=== PATIENT | male | born 1945 | race Caucasian/White ===

== ENCOUNTER 2017-08-08 15:41 | Inpatient (IN) | payer MEDICARE ==
[~2017-08-08 15:41] MED LIST: ISOVUE-370 76%-LOCM 1 ML ONE
[2017-08-08] MEDS ORDERED: Adacel (T-DAP) 0.5 ML VIAL ONE ×2 (15:53→16:07)
[2017-08-08] MEDS ORDERED: CEFAZOLIN 1 GM VIAL ONE (15:53)
[2017-08-08] MEDS ORDERED: Lidocaine 1% w/Epinephrine 1:100K 20 ML VIAL ONE ×2 (15:56→16:23)
[2017-08-08] MEDS ORDERED: Ondansetron ODT 4 MG TAB ONE (15:56)
[2017-08-08 15:59] LABS: #Basophils 0.1 thou/uL (0.0-0.2); #Eosinphils 0.3 thou/uL (0.0-0.7); #Lymphocytes 3.4 thou/uL (1.20-3.40); #Monocytes 1.1 thou/uL (0.11-0.59); #Neutrophils 5.5 thou/uL (1.40-6.50); %Basophils 0.6 % (0.0-1.0); %Lymphocytes 32.6 % (21.0-51.0); %Monocytes 10.2 % (0.0-10.0); %Neutrophils 53.6 % (42.0-75.0); Hemoglobin 12.4 g/dL (14.0-18.0); Mean Corpuscular HGB CONC 34.8 g/dL (32.0-36.0); Mean Platelet Volume 6.9 fL (7.4-10.4); Platelet Count 258 thou/uL (130-400); RBC Distribution Width 11.5 % (11.5-14.5); Red Blood Cell (RBC) Count 3.87 mill/uL (4.70-6.10); White Blood Cell (WBC) Count 10.3 thou/uL (4.8-10.8)
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
[2017-08-08 16:07] LABS: PTT 26.6 SEC (22.9-36.1); Prothrombin Time 13.3 SEC (12.0-14.7)
[2017-08-08 16:16] LABS: ALT (SGPT) 18 U/L (8-55); AST (SGOT) 26 U/L (5-34); Albumin 4.3 g/dL (3.4-4.8); Alkaline Phosphatase 57 U/L (40-150); Anion Gap 12 mmol/L (10-20); BUN (Urea Nitrogen) 16 mg/dL (8.4-25.7); Bilirubin, Total 0.6 mg/dL (0.2-1.2); Calc. Creatinine Clearance 0 mL/min (70-130); Calcium 9.1 mg/dL (7.8-10.44); Carbon Dioxide 23 mmol/L (23-31); Chloride 103 mmol/L (98-107); Estimated GFR-MDRD 83; Globulin 2.4 g/dL (2.4-3.5); Glucose 98 mg/dL (83-110); Potassium 3.5 mmol/L (3.5-5.1); Protein, Total 6.7 g/dL (5.8-8.1); Sodium 134 mmol/L (136-145)
[2017-08-08 16:17] LABS: CKMB 6.1 ng/mL (0-6.6); Troponin I Less than 0.010 ng/mL (< 0.028)
[2017-08-08] MEDS ORDERED: Oxymetazoline HCl 0.05% ( 15 ML ) ONE (16:19)
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
[2017-08-08] MEDS ORDERED: CEFAZOLIN/Water 2 GM/20 ML SYRINGE SLOW IVP SCH (16:30)
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
[2017-08-08] MEDS ORDERED: Atropine Sulfate 1 mg/10 ml Syringe ONE ×2 (16:35→18:15)
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
[2017-08-08] MEDS ORDERED: Ondansetron ODT 4 MG TAB PO PRN (17:46)
[2017-08-08] MEDS ORDERED: Dextrose 50% Abboject 50 ML SYRINGE SLOW IVP PRN (17:46)
[2017-08-08] MEDS ORDERED: Ondansetron HCl/PF 4 MG/2 ML Vial IVP PRN (17:46)
[2017-08-08] MEDS ORDERED: Dextrose 5% in Water 1,000 ML IV PRN (17:46)
[2017-08-08] MEDS ORDERED: hydrALAZINE 20 MG/ML VIAL SLOW IVP PRN (17:46)
[2017-08-08 18:07] LABS: Hemoglobin 9.9 g/dL (14.0-18.0)
[2017-08-08] MEDS: Sodium Chloride 0.9% 1,000 ML IV SCH (18:10)
[2017-08-08 18:24] VITALS: BMI 23.8
[2017-08-08] MEDS: Acetaminophen 1,000 MG in Premix Bag 1 BAG IVPB SCH ×2 (19:05→23:22)
[2017-08-08] MEDS ORDERED: CEFAZOLIN 1 GM VIAL SLOW IVP SCH (22:00)
[2017-08-08 23:49] LABS: Hemoglobin 10.6 g/dL (14.0-18.0)
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
[2017-08-09] MEDS: CEFAZOLIN 1 GM in Sodium Chloride 0.9% 100 ML IVPB SCH ×2 (01:20→08:29)
[2017-08-09] MEDS: Sodium Chloride 0.9% 1,000 ML IV SCH ×2 (03:39→12:08)
[2017-08-09 05:01] LABS: Anion Gap 11 mmol/L (10-20); BUN (Urea Nitrogen) 23 mg/dL (8.4-25.7); Calc. Creatinine Clearance 109 mL/min (70-130); Calcium 8.1 mg/dL (7.8-10.44); Carbon Dioxide 23 mmol/L (23-31); Chloride 106 mmol/L (98-107); Estimated GFR-MDRD Greater than 90; Glucose 115 mg/dL (83-110); Potassium 3.9 mmol/L (3.5-5.1); Sodium 136 mmol/L (136-145)
[2017-08-09 05:11] LABS: Band 11 % (5-11); Hemoglobin 10.2 g/dL (14.0-18.0); Lymphocytes 19 % (21-51); MDiff Complete? YES; Mean Corpuscular HGB CONC 34.3 g/dL (32.0-36.0); Mean Corpuscular Hemoglobin 31.5 pg (27.0-31.0); Mean Corpuscular Volume 91.9 fL (78.0-98.0); Mean Platelet Volume 7.2 fL (7.4-10.4); Monocytes 11 % (0-10); Neutrophil 59 % (42-75); PLT Morphology Comment Appears Adequate; Platelet Count 178 thou/uL (130-400); RBC Distribution Width 11.9 % (11.5-14.5); Red Blood Cell (RBC) Count 3.25 mill/uL (4.70-6.10); White Blood Cell (WBC) Count 9.5 thou/uL (4.8-10.8)
[2017-08-09] MEDS: Acetaminophen 1,000 MG in Premix Bag 1 BAG IVPB SCH ×2 (05:26→12:10)
[2017-08-09 06:18] LABS: Hemoglobin 9.7 g/dL (14.0-18.0)
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
[2017-08-09 12:18] LABS: Hemoglobin 10.5 g/dL (14.0-18.0)
[2017-08-09] MEDS ORDERED: traMADol HCl 50 MG TAB PO PRN ×2 (13:20)
[2017-08-09] MEDS ORDERED: Acetaminophen 500 MG TAB PO SCH (13:30)
[2017-08-09] MEDS: Acetaminophen 325 MG TAB PO SCH ×3 (14:53→20:49)
[2017-08-09] MEDS: Ibuprofen 800 MG TAB PO SCH ×2 (14:54→20:49)
[2017-08-09 18:11] LABS: Hemoglobin 9.7 g/dL (14.0-18.0)
[2017-08-09 23:33] LABS: Hemoglobin 9.1 g/dL (14.0-18.0)
[2017-08-10] MEDS: Acetaminophen 325 MG TAB PO SCH ×6 (02:37→21:30)
[2017-08-10] MEDS: Ibuprofen 800 MG TAB PO SCH ×3 (06:16→21:30)
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
[2017-08-10] MEDS: Aspirin 81 mg Enteric Coated Tablet PO SCH (09:54)
[2017-08-10] MEDS: Rosuvastatin 10 MG TAB PO SCH (09:54)
[2017-08-10] MEDS: Lisinopril 10 MG TAB PO SCH (09:54)
[2017-08-10 11:50] LABS: Hemoglobin 9.1 g/dL (14.0-18.0)
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
[2017-08-11] MEDS: Acetaminophen 325 MG TAB PO SCH ×4 (03:33→14:12)
[2017-08-11 05:33] LABS: #Eosinphils 0.3 thou/uL (0.0-0.7); #Monocytes 0.8 thou/uL (0.11-0.59); #Neutrophils 6.8 thou/uL (1.40-6.50); %Basophils 0.3 % (0.0-1.0); %Eosinophils 3.6 % (0.0-10.0); %Lymphocytes 11.2 % (21.0-51.0); %Monocytes 9.1 % (0.0-10.0); %Neutrophils 75.8 % (42.0-75.0); Hemoglobin 8.6 g/dL (14.0-18.0); Mean Corpuscular HGB CONC 34.5 g/dL (32.0-36.0); Mean Corpuscular Hemoglobin 31.9 pg (27.0-31.0); Mean Corpuscular Volume 92.7 fL (78.0-98.0); Mean Platelet Volume 7.4 fL (7.4-10.4); Platelet Count 147 thou/uL (130-400); Red Blood Cell (RBC) Count 2.68 mill/uL (4.70-6.10); White Blood Cell (WBC) Count 8.9 thou/uL (4.8-10.8)
[2017-08-11 05:46] LABS: Anion Gap 8 mmol/L (10-20); BUN (Urea Nitrogen) 14 mg/dL (8.4-25.7); Calc. Creatinine Clearance 103 mL/min (70-130); Calcium 8.5 mg/dL (7.8-10.44); Carbon Dioxide 25 mmol/L (23-31); Chloride 107 mmol/L (98-107); Estimated GFR-MDRD Greater than 90; Glucose 108 mg/dL (83-110); Magnesium 1.8 mg/dL (1.6-2.6); Phosphorus 2.9 mg/dL (2.3-4.7); Potassium 3.6 mmol/L (3.5-5.1); Sodium 136 mmol/L (136-145)
[2017-08-11] MEDS: Ibuprofen 800 MG TAB PO SCH ×2 (06:08→14:12)
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
[2017-08-11] MEDS ORDERED: NEXIUM 20 MG PO SCH (09:00)
[2017-08-11] MEDS: Lisinopril 10 MG TAB PO SCH (09:54)
[2017-08-11] MEDS: Rosuvastatin 10 MG TAB PO SCH (09:54)
[2017-08-11] MEDS: Aspirin 81 mg Enteric Coated Tablet PO SCH (09:54)
--- NOTE | 2017-08-11 15:34 | RAD ---
PORTABLE CHEST 1 VIEW: Date: 08/11/17 Time: 1428 hours HISTORY: Chest tube removal. FINDINGS/IMPRESSION: Comparison made with exam at 0741 hours from the same date. There has been interval removal of the right-sided chest tube. A tiny right apical pneumothorax is se en. Remainder of exam is otherwise stable. POS: [facility]
[2017-08-11 15:37] VITALS: BP 119/72; TEMP 97.7
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
== END 2017-08-11 18:50 | disposition home or self-care (01) | DRG 605 ==
LOC: ERS 15:41 → CCU 17:16 → SURG B 17:24
PROVIDERS: ADMIT Surgery; ATTEND Surgery
PROC: 0W9900Z Drainage of Right Pleural Cavity with Drainage Device, Open Approach (ICD-10-PCS; principal; 2017-08-09)
DX: S21.109A Unspecified open wound of unspecified front wall of thorax without penetration into thoracic cavity, initial encounter (principal); J93.9 Pneumothorax, unspecified; S01.401A Unspecified open wound of right cheek and temporomandibular area, initial encounter; S11.90XA Unspecified open wound of unspecified part of neck, initial encounter; X95.9XXA Assault by unspecified firearm discharge, initial encounter; Y93.9 Activity, unspecified; Y92.9 Unspecified place or not applicable; I10 Essential (primary) hypertension; E78.00 Pure hypercholesterolemia, unspecified
CPT/HCPCS: 36415; 36416; 36430; 70486; 70498; 71045; 71260; 74177; 74220; 80048; 80053; 82150; 82533; 82553; 83735; 84100; 84484; 85014; 85018; 85025; 85610; 85730; 86850; 86900; 86901; 90471; 90715; 94640; 96361; 96374; 99292; G0390; G8978-GP-CL; G8979-GP-CJ; G8987-GO-CI; G8988-GO-CI; G8989-GO-CI; J0131; J0461; J0690; J2001; J7050; J7620; P9016; Q0162

== ENCOUNTER 2017-08-19 09:35 | Outpatient (CLI) | payer MEDICARE ==
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
== END 2017-08-19 09:36 | disposition home or self-care (01) ==
LOC: RAD 09:35
PROVIDERS: ATTEND Physician Assistant
DX: J93.9 Pneumothorax, unspecified (principal); J43.9 Emphysema, unspecified; Z18.10 Retained metal fragments, unspecified
CPT/HCPCS: 71046

== ENCOUNTER 2019-04-19 06:50 | Outpatient (CLI) | payer MEDICARE ==
--- NOTE | 2019-04-19 07:42 | ULT ---
Abdominal aortic sonogram HISTORY: Aneurysm screening. FINDINGS: Good color and spectral Doppler flow within the abdominal aorta. Proximal abdominal aorta i s 1.6 cm AP diameter. Mid abdominal aorta 1.6 cm. Distal abdominal aorta 1.7 cm. Each common iliac artery has normal appearance. No fluid adjacent to the vessels. IMPRESSION: No evidence of abdominal aortic aneurysm.
== END 2019-04-19 06:51 | disposition home or self-care (01) ==
LOC: BICULT 06:50
PROVIDERS: ATTEND Internal Medicine
DX: Z13.6 Encounter for screening for cardiovascular disorders (principal)
CPT/HCPCS: 76775

== ENCOUNTER 2021-06-06 13:21 | Outpatient (CLI) | payer MEDICARE | END 2021-06-06 13:22 | disposition home or self-care (01) | LOC: ULT 13:21 | PROVIDERS: ATTEND Internal Medicine | DX: I10 Essential (primary) hypertension (principal); R42 Dizziness and giddiness; I08.3 Combined rheumatic disorders of mitral, aortic and tricuspid valves | CPT/HCPCS: 93306 ==